=== PATIENT | male | born 1970 | race Caucasian/White ===

== ENCOUNTER 2018-06-27 20:52 | Emergency (ER) | payer OTHER ==
[2018-06-27] MEDS: LORAZEPAM 1 MG TAB PO (21:54)
[2018-06-27 22:06] LABS: ADD MAN DIFF? NO
[2018-06-27 22:09] LABS: WHITE BLOOD COUNT 6.1 10^3/ul (4.8-10.8)
[2018-06-27 22:09] LABS: BASOPHIL # 0.1 10^3/ul (0.0-0.1); EOSINOPHILS # 0.2 10^3/ul (0.0-0.5); EOSINOPHILS % 3.9 % (0.0-7.0); HEMATOCRIT 51.5 % (42.0-52.0); HEMOGLOBIN 16.7 g/dl (14.0-18.0); LYMPHOCYTES # 2.4 10^3/ul (0.8-2.9); LYMPHOCYTES % 38.5 % (15.0-51.0); MEAN CORPUSCULAR HEMOGLOBIN 30.6 pg (29.0-33.0); MEAN CORPUSCULAR HGB CONC 32.4 g/dl (32.0-37.0); MEAN CORPUSCULAR VOLUME 94.3 fl (82.0-101.0); MEAN PLATELET VOLUME 10.1 fl (7.4-10.4); MONOCYTE # 0.5 10^3/ul (0.3-0.9); MONOCYTES % 7.9 % (0.0-11.0); NEUTROPHILS % 48.5 % (39.0-77.0); PLATELET COUNT 183 10^3/UL (140-415); RED BLOOD COUNT 5.46 10^6/ul (4.70-6.10); RED CELL DISTRIBUTION WIDTH 13.2 % (11.5-14.5)
[2018-06-27 22:40] LABS: ANION GAP 12 (5-13); BLOOD UREA NITROGEN 6 mg/dl (7-20); CALCIUM 8.9 mg/dl (8.4-10.2); CARBON DIOXIDE 27 mmol/L (21-31); CHLORIDE 100 mmol/L (97-110); CREATININE 0.62 mg/dl (0.61-1.24); Estimated GFR > 60 mL/min (>60); GLUCOSE 97 mg/dl (70-220); POTASSIUM 4.5 mmol/L (3.5-5.1); SODIUM 139 mmol/L (135-144)
[2018-06-27 22:40] LABS: MAGNESIUM 2.1 mg/dl (1.7-2.5)
[2018-06-27 22:50] LABS: B-TYPE NATRIURETIC PEPTIDE 35 PG/ML (0-125)
== END 2018-06-28 01:32 | disposition home or self-care (01) ==
LOC: E/R 06-28 01:32
DX: F10.10 Alcohol abuse, uncomplicated (principal); R07.9 Chest pain, unspecified
CPT/HCPCS: 71045; 80048; 83735; 83880; 85025; 99285-25